=== PATIENT | female | born 1995 | race Caucasian/White ===

== ENCOUNTER → 2018-03-08 | Outpatient (CLI) | payer OTHER ==
[~2018-03-08] MED LIST: GADOBENATE 529MG/1ML 5 ML VIAL ONE; IOPAMIDOL 20 ML VIAL IT ONE; IOPAMIDOL-200 50 ML VIAL IS ONE; LIDOCAINE MPF 1% 5 ML VIAL ONE
--- NOTE | 2018-03-08 15:32 | RADIOLOGY IMAGING REPORT ---
FACILITY: [facility] - [place] PATIENT NAME: Edie Mott : 1995 MR: [id number] V: [id number] EXAM DATE: ORDERING PHYSICIAN: MEI WHITFIELD TECHNOLOGIST: Location: [facility] [place] Patient: Edie Mott : 1995 Visit/Account:[id number] Date of Sevice: 03/08/2018 MR arthrogram left shoulder Indication: Shoulder pain. Instability. Comparison: None available Technique: Sagittal and coronal T1 weighted fat saturated and T2-weighted fat saturated as well as ax ial T1-weighted and a gradient echo images were obtained through the left shoulder after intra-articu lar administration of gadolinium. Findings: There is a type I acromion. The acromioclavicular joint is normal. The glenohumeral joint is distended with gadolinium. There is some extravasation into the anterior so ft tissues which is felt to be iatrogenic. Patient is internally rotated within the shoulder coil. Th is limits evaluation of the anterior capsule and the subscapularis tendon. With respect to the glenoid labrum, there is felt to be focal tearing of the anterior/inferior labrum extending from approximately the 6:00 to the 8:00 position. No normal labrum is seen in this region. Labrum appears completely avulsed from this location. Focal chondrosis is also seen anteriorly and i nferiorly. Labral fragment is likely flipped into the axillary recess overlying the inferior labrum. No glenoid contusion or fracture is identified. No definite Hill-Sachs deformity is seen. Remaining p ortions of the labrum appear intact. Examination of the rotator cuff demonstrates normal supraspinatus and infraspinatus insertions. Subsc apularis insertion appears intact. There is iatrogenic intrasubstance gadolinium seen within the subs capularis tendon. The long head biceps tendon is identified within the bicipital groove. Insertion up on the glenoid is maintained. IMPRESSION: 1. Arthrogram findings compatible with tearing/avulsion of the left shoulder anterior-inferior glenoi d labrum with mild associated glenoid chondrosis. A flipped/displaced labral fragment is suspected ov erlying the inferior labrum. 2. Intact left shoulder rotator cuff. Report Dictated By: Apollo Espino at 03/08/2018 3:10 PM Report E-Signed By: Apollo Espino at 03/08/2018 3:28 PM WSN:[id number]
--- NOTE | 2018-03-08 17:25 | RADIOLOGY IMAGING REPORT ---
FACILITY: [facility] - [place] PATIENT NAME: Edie Mott : 1995 MR: [id number] V: [id number] EXAM DATE: ORDERING PHYSICIAN: MEI WHITFIELD TECHNOLOGIST: Location: [facility] Patient: Edie Mott : 1995 Visit/Account:[id number] Date of Sevice: 03/08/2018 Exam type: ARTHROGRAM PRE-MRI History: Unstable left shoulder, chronic left shoulder dislocations, rule out labral tear Comparison: None. Findings: Informed consent was obtained. The left shoulder was prepped and draped usual sterile fashion. Unfo rtunately the patient was only able to internally rotate her left shoulder with her elbow held at yte roximately 120 degrees draped over her abdomen. Local anesthesia was accomplished 1% lidocaine. Uti lizing fluoroscopic guidance a 22-gauge spinal needle was advanced percutaneously into the anterior a spect of the left shoulder. Several milliliters of Isovue-200 were injected to evaluate needle place ment. There was extravasation of contrast in the anterior musculature. I was able to successfully i nject approximately 12 mL of dilute gadolinium suspension within the left shoulder joint despite the difficulty shoulder positioning. The procedure was accomplished without apparent complication. The patient was sent to for further imaging. The fluoroscopy dose area product was 218.14 micro-Zee per meter squared. IMPRESSION: 1. Technically difficult although successful left shoulder arthrogram Report Dictated By: Deena Mcintosh MD at 03/08/2018 5:15 PM Report E-Signed By: Deena Mcintosh MD at 03/08/2018 5:21 PM WSN:[email or web address]
== END ==
LOC: MRI 12:42
PROVIDERS: ATTEND Orthopaedic Surgery Sports Medicine
DX: M25.312 Other instability, left shoulder (principal)
CPT/HCPCS: 23350; 73222; 77002; A9577; J2001; Q9966